=== PATIENT | female | born 1955 | race Caucasian/White ===

== ENCOUNTER 2022-11-23 22:14 | Emergency (ER) | payer OTHER ==
[~2022-11-23] VITALS: Ht 154.9 cm; Wt 83.5 kg
[2022-11-23 22:45] VITALS: BP 158/88; PULSE 58; RESP 14; TEMP 97.6; O2SAT 100
[2022-11-24] MEDS ORDERED: ACETAMINOPHEN EXTRA STRENGTH 500 MG TAB PO ONE (00:50)
[2022-11-24] MEDS ORDERED: methocarbamoL 500 MG TAB PO ONE (00:50)
[2022-11-24] MEDS ORDERED: KETOROLAC 30 MG/ML VIAL IM ONE (00:50)
[2022-11-24] MEDS ORDERED: predniSONE 20 MG TAB PO ONE (00:50)
[2022-11-24] MEDS ORDERED: PRED20TA5 PO (01:23)
[2022-11-24] MEDS ORDERED: NAPR-54 PO (01:23)
[2022-11-24] MEDS ORDERED: METH-1681 PO (01:23)
[2022-11-24] MEDS ORDERED: LID5T TP (01:23)
[2022-11-24 02:00] VITALS: BP 140/79; PULSE 71; RESP 17; TEMP 98; O2SAT 100
== END 2022-11-24 02:00 | disposition home or self-care (01) ==
LOC: MED 22:14
DX: M54.42 Lumbago with sciatica, left side (principal); Z79.899 Other long term (current) drug therapy
CPT/HCPCS: 96372; 99284; J1885; J7512